=== PATIENT | male | born 1970 | race Caucasian/White ===

== ENCOUNTER 2022-02-22 05:11 | Observation (INO) ==
--- NOTE | 2021-12-04 15:01 | PAT Medication Instructions ---
Medication Instructions Date of Service December 04, 2021 Home Medications coenzyme Q10 200 mg capsule (Co Q-10) 200 mg PO HS STOP taking 2 weeks before surgery (or as soon as possible if surgery is within 2 weeks) coenzyme Q10 200 mg capsule (Co Q-10) 200 mg PO HS Other Notes If you have any questions please call us at [phone] or [phone] or [phone] or [phone]
--- NOTE | 2021-12-14 08:19 | Anesthesiology Consultation ---
Date of Service December 14, 2021 Assessment & Plan (1) Encounter for pre-operative examination: - awaiting pt reported upcoming PCP clearance 12/26/21. Outpatient joint assessment: Patient is currently scheduled for inpatient pathway. Per discussion with Dr. Dennis, if re-evaluated pending system levels during current pandemic/surgeon requests outpatient pathway, patient is acceptable candidate for outpatient joint program from anesthesia standpoint pending perioperative course and surgeon's office assessment of pt motivation/support/completion of same day joint program preop requirements. Chart Review Chart Review: Pending: Refer to Additional Notes / Consult section and Patient seen in Pre Admission Testing Teaching & Discussion Pre-Anesthesia Teaching/Discussion Notes: Instructed NPO after midnight before surgery, except medications with 15 cc of water. Medication instructions provided according to the PAT guidelines. History Surgery Operation Date: 01/17/22 07:15 Proposed Procedures p Right Total Shoulder Arthroplasty - Martin Murphy MD Height/Weight Height: 5 ft 7 in Weight: 85.2 kg Allergies Allergy/AdvReac Type Severity Reaction Status Date / Time No Known Allergies Allergy Verified 12/04/21 07:34 Medications Home Medications Medication Instructions Recorded Confirmed Last Taken coenzyme Q10 200 mg capsule (Co 200 mg PO HS 12/04/21 12/04/21 Unknown Q-10) Past Medical History Medical History (Updated 12/14/21 @ 08:33 by Lexie Torres PA-C) History of high blood pressure monitoring, 120-80s; white coat hypertension Patient denies h/o stroke, seizures, heart attack, heart failure, DM, blood clots or blood transfusions. Exercise / Class Metabolic Activity II 4-5 Yardwork/Stairs/Walk up hill (denies CP or SOB with 1 FOS) Past Surgical History Surgical History History of arthroscopy left knee x2, right knee x1 History of colonoscopy Hx of LASIK Hx of vasectomy [place] teeth extracted Past Anesthesia History No Hx of Anesthesia Complications and No Family Hx of Anesthesia Complications History of PONV No Hx of PONV and No Hx of Motion Sickness Social History Smoking Status: Never smoker Do You Dip or Chew Tobacco: No Hx Alcohol Use: Yes Alcohol type: beer, wine and hard liquor alcohol intake frequency: a few times a week Hx Substance Use: No substance use type: does not use Review of Systems Snoring, denies witnessed apneas. Patient denies chest pain, shortness of breath, dyspnea on exertion, reflux, fever, chills, cough, wheezing, or palpitations. Physical Exam Vital Signs Vitals BP 168/97, pt states BP is usually 120s/80s with exception to certain clinical settings and that this is normal BP reading for such settings for him, following with PCP for BP monitoring P 62 TEMP 97.7 SP02 99% on RA RESP 18 Physical Full cervical extension range of motion without pain TMD 3.5 finger breadths Mallampati Score 2 Dentition: intact, several caps/crowns; denies chipped or loose teeth, implants or bridges Lungs: normal respiratory effort. Clear throughout to auscultation, no adventitious breath sounds Cardiac: regular rate and rhythm, no murmurs noted Carotid arteries: negative bruit bilat Lab Results Anesthesia Preop Results Results Anesthesia Widget: WBC 5.78 K/ul (4.8-10.8) 12/14/21 Hgb 15.1 g/dl (14.0-18.0) 12/14/21 Hct 42.9 % (40.1-51.0) 12/14/21 Plt 211 K/uL (130-400) 12/14/21 Na 140 mmol/L (136-145) 12/14/21 K 4.1 mmol/L (3.5-5.1) 12/14/21 Cl 104 mmol/L (98-107) 12/14/21 CO2 31 mmol/L (21-32) 12/14/21 BUN 21 mg/dl (6-23) 12/14/21 Creat 1.10 mg/dl (0.6-1.4) 12/14/21 Glucose Level 89 mg/dl (70-99(Fasting)) 12/14/21 PT 10.9 Seconds (9.0-12.0) 12/14/21 PTT 28.2 Seconds (21.0-31.0) 12/14/21 INR 1.0 (0.9-1.1) 12/14/21 HA1c 5.0 % (4.5-5.6) 12/14/21 Urine Color Yellow 12/14/21 Urine Appearance Clear (Clear) 12/14/21 Urine pH 5.5 (4.5-7.5) 12/14/21 Urine Specific [place] 1.024 (1.000-1.030) 12/14/21 Urine Protein Negative (Negative) 12/14/21 Urine Glucose (UA) Negative (Negative) 12/14/21 Urine Ketones Negative (Negative) 12/14/21 Urine Blood Negative (Negative) 12/14/21 Urine Nitrite Negative (Negative) 12/14/21 Urine Bilirubin Negative (Negative) 12/14/21 Urine Urobilinogen Negative (Negative) 12/14/21 Urine Leukocyte Esterase Negative (Negative) 12/14/21 Blood Type O Positive 12/14/21 Antibody Screen NEGATIVE 12/14/21 Testing Electrocardiogram Date: 12/14/21 Sinus bradycardia, rate 54 bpm Chest X-Ray Date: 12/14/21 No acute process COVID-19 Risk Screen Screening Information COVID-19 Screen Date: 12/14/21 Exposure 21 Days Family/Household +COVID Last 21 Days: No Exposure 10 Days Any COVID Exposure Last 10 Days: No Symptoms Last 10 Days Experienced COVID Sx Last 10 Days: No + COVID 0-90 Days COVID + in Last 0-90 Days: No
--- NOTE | 2021-12-31 08:48 | History & Physical Report ---
Date of Service December 31, 2021 Assessment & Plan (1) Primary osteoarthritis, right shoulder: Plan: Treatment options discussed with the patient. He has failed conservative measures and would like to proceed with surgical intervention. Risks, benefits and alternatives to surgery including but not limited to infection, DVT, pain, stiffness, need for revision surgery, damage to blood vessels, damage to nerves, PE, , were discussed with the patient and they wish to proceed. Plan for right overemotional total shoulder arthroplasty scheduled for January [address] [facility] [address] Murphy. We will plan on outpatient PT postop. We will plan on aspirin 81 mg twice daily for 1 month postop for DVT prophylaxis. All questions answered. He will follow-up postop. History of Present Illness Chief Complaint: Right shoulder pain Primary Care Provider: Deonte Fine 51-year-old male with past medical history significant for hypertension who presents with ongoing right shoulder pain. Pain is interfering with his daily and leisure activities. He has failed conservative measures and would like to proceed with surgical intervention. Patient denies headaches, sweats, fevers, chills, double vision, blurred vision, cough, sore throat, dysphagia, chest pain, sob, wheezing, n/v/d/c, numbness, tingling, fatigue, urinary symptoms, mood disorders. ROS positive for right shoulder pain and stiffness. Allergies Allergy/AdvReac Type Severity Reaction Status Date / Time No Known Allergies Allergy Verified 12/04/21 07:34 Home Medications Medication Instructions Recorded Confirmed Type coenzyme Q10 200 mg capsule (Co 200 mg PO HS 12/04/21 12/04/21 History Q-10) Past Med/Surg History Medical History (Updated 12/31/21 @ 08:47 by Davi Bravo PA-C) History of high blood pressure monitoring, 120-80s; white coat hypertension Surgical History History of arthroscopy left knee x2, right knee x1 History of colonoscopy Hx of LASIK Hx of vasectomy [place] teeth extracted Social History Smoking Status: Never smoker Second Hand Exposure: No; Hx Alcohol Use: Yes Alcohol type: beer, wine and hard liquor Hx Substance Use: No Preferred Language: Indonesian Communication Ability: Effective Bulk Mail Clerk Required: No Beliefs That Will Affect Care: None Current Living Situation: Significant Other Feels Safe at Home: Yes Assistive Devices: Glasses Review of Systems All systems reviewed & are unremarkable except as noted in HPI & below Physical Exam Constitutional: well developed and well nourished; no acute distress Eyes: PERRL, conjunctivae normal, anicteric sclerae ENMT: external ear and nose normal, oropharynx normal Neck: trachea midline, no thyromegaly Respiratory: normal respiratory effort, lungs clear to auscultation Cardiovascular: RRR, no murmur, no edema Musculoskeletal: Right shoulder: Diffuse tenderness. There is crepitation with range of motion. He has positive impingement signs. Active painful range of motion. External rotation to 30 degrees, abduction to 60 degrees, forward flexion to 150 degrees. Strength is normal. Skin: no rashes, warm and dry Neurologic: patellar DTR's 2+ bilat, sensation intact Psychiatric: A+Ox3, euthymic affect Results & Data ([facility]) Diagnostic Findings Right shoulder radiographs demonstrate end-stage osteoarthritis right shoulder with [id number] glenohumeral joint. There is a large inferior humeral spur.
--- NOTE | 2022-02-19 14:02 | Anesthesiology Consultation ---
Date of Service February 19, 2022 Assessment & Plan (1) Encounter for pre-operative examination: Chart Review Chart Review: Acceptable Risk for Surgery and Patient NOT seen in Pre Admission Testing -COVID screening: Per [facility] nursing assessment on 02/19/22. No known COVID-19 positive contacts or current COVID-19 related symptoms. Travel screen negative. Patient vaccinated for Covid. At surgeon discretion if preop Covid testing being done. Pt seen in PAT 12/14/21- at that time - consider acceptable candidate for Outpatient Joint Program if surgeon chooses pending patient is motivated, has support and surgeon's office completes Same Day Joint protocol requirements. PT currently scheduled as 23 observation Pt seen by PCP 12/26/21= Seen for preop assessment. Planned surgery is intermediate risk. Patient is medically optimized for right total shoulder arthroplasty on 01/17/2022 (surgery rescheduled to 02/22/22). Hypertensionno signs or symptoms of hypertensive crisis. BP at home usually in 130s over 80s. BP on repeat 150/94. On BP meds in the pastno longer on treatment. May have some element of whitecoat hypertension. We will further discuss after surgery. History Surgery Operation Date: 02/22/22 09:20 Proposed Procedures p Right Total Shoulder Arthroplasty - Martin Murphy MD Height/Weight Height: 5 ft 7 in Weight: 82.554 kg Allergies Allergy/AdvReac Type Severity Reaction Status Date / Time No Known Allergies Allergy Verified 02/19/22 13:25 Medications Home Medications Medication Instructions Recorded Confirmed Last Taken coenzyme Q10 200 mg capsule (Co 200 mg PO HS 12/04/21 02/19/22 Unknown Q-10) olmesartan 5 mg tablet (Benicar) 10 mg PO QPM 02/19/22 02/19/22 Unknown Past Medical History Medical History (Updated 02/19/22 @ 13:59 by Chary Martinez PA-C) Dyslipidemia Per PCP records HTN (hypertension) Meniere disease Per PCP records Past Surgical History Surgical History History of arthroscopy left knee x2, right knee x1 History of colonoscopy Hx of LASIK Hx of vasectomy [place] teeth extracted Social History Smoking Status: Never smoker Do You Dip or Chew Tobacco: No Hx Alcohol Use: Yes Alcohol type: beer, wine and hard liquor alcohol intake frequency: a few times a week Hx Substance Use: No substance use type: does not use Lab Results Anesthesia Preop Results Results Anesthesia Widget: WBC 6.98 K/ul (4.8-10.8) 01/26/22 Hgb 15.5 g/dl (14.0-18.0) 01/26/22 Hct 43.0 % (40.1-51.0) 01/26/22 Plt 217 K/uL (130-400) 01/26/22 Na 141 mmol/L (136-145) 01/26/22 K 4.2 mmol/L (3.5-5.1) 01/26/22 Cl 104 mmol/L (98-107) 01/26/22 CO2 31 mmol/L (21-32) 01/26/22 BUN 22 mg/dl (6-23) 01/26/22 Creat 1.03 mg/dl (0.6-1.4) 01/26/22 Glucose Level 87 mg/dl (70-99(Fasting)) 01/26/22 PT 10.9 Seconds (9.0-12.0) 01/26/22 PTT 27.6 Seconds (21.0-31.0) 01/26/22 INR 1.0 (0.9-1.1) 01/26/22 HA1c 4.9 % (4.5-5.6) 01/26/22 Urine Color Yellow 01/26/22 Urine Appearance Clear (Clear) 01/26/22 Urine pH 5.0 (4.5-7.5) 01/26/22 Urine Specific [place] 1.017 (1.000-1.030) 01/26/22 Urine Protein Negative (Negative) 01/26/22 Urine Glucose (UA) Negative (Negative) 01/26/22 Urine Ketones Negative (Negative) 01/26/22 Urine Blood Negative (Negative) 01/26/22 Urine Nitrite Negative (Negative) 01/26/22 Urine Bilirubin Negative (Negative) 01/26/22 Urine Urobilinogen Negative (Negative) 01/26/22 Urine Leukocyte Esterase Negative (Negative) 01/26/22 Blood Type O Positive 01/26/22 Antibody Screen NEGATIVE 01/26/22 Testing Laboratory Results 01/26/22= URINE CULTURE: No growth Electrocardiogram Date: 12/14/21 Sinus bradycardia, rate 54 bpm Chest X-Ray Date: 12/14/21 No acute process
--- NOTE | 2022-02-20 15:42 | History & Physical Report ---
Date of Service February 20, 2022 Assessment & Plan (1) Primary osteoarthritis, right shoulder: Plan: Treatment options discussed with the patient. He has failed conservative measures and would like to proceed with surgical intervention. Risks, benefits and alternatives to surgery including but not limited to infection, DVT, pain, stiffness, need for revision surgery, damage to blood vessels, damage to nerves, PE, , were discussed with the patient and they wish to proceed. Plan for right overemotional total shoulder arthroplasty scheduled for February 22 at [facility] with Dr. Murphy. We will plan on outpatient PT postop. All questions answered. He will follow-up postop. History of Present Illness Chief Complaint: Right shoulder pain Primary Care Provider: Deonte Fine 51-year-old male with past medical history significant for hypertension who presents with ongoing right shoulder pain. Pain is interfering with his daily and leisure activities. He has failed conservative measures and would like to proceed with surgical intervention. Patient denies headaches, sweats, fevers, chills, double vision, blurred vision, cough, sore throat, dysphagia, chest pain, sob, wheezing, n/v/d/c, numbness, tingling, fatigue, urinary symptoms, mood disorders. ROS positive for right shoulder pain and stiffness. Allergies Allergy/AdvReac Type Severity Reaction Status Date / Time No Known Allergies Allergy Verified 02/19/22 13:25 Home Medications Medication Instructions Recorded Confirmed Type coenzyme Q10 200 mg capsule (Co 200 mg PO HS 12/04/21 02/19/22 History Q-10) olmesartan 5 mg tablet (Benicar) 10 mg PO QPM 02/19/22 02/19/22 History Past Med/Surg History Medical History (Updated 02/19/22 @ 13:59 by Chary Martinez PA-C) Dyslipidemia Per PCP records HTN (hypertension) Meniere disease Per PCP records Surgical History History of arthroscopy left knee x2, right knee x1 History of colonoscopy Hx of LASIK Hx of vasectomy [place] teeth extracted Social History Smoking Status: Never smoker Second Hand Exposure: No; Hx Alcohol Use: Yes Alcohol type: beer, wine and hard liquor Hx Substance Use: No Preferred Language: French Communication Ability: Effective Medical Research Associate Required: No Beliefs That Will Affect Care: None Current Living Situation: Significant Other Feels Safe at Home: Yes Assistive Devices: Glasses Review of Systems All systems reviewed & are unremarkable except as noted in HPI & below Physical Exam Constitutional: well developed and well nourished; no acute distress Eyes: PERRL, conjunctivae normal, anicteric sclerae ENMT: external ear and nose normal, oropharynx normal Neck: trachea midline, no thyromegaly Respiratory: normal respiratory effort, lungs clear to auscultation Cardiovascular: RRR, no murmur, no edema Musculoskeletal: Right shoulder: Diffuse tenderness. There is crepitation with range of motion. He has positive impingement signs. Active painful range of motion. External rotation to 30 degrees, abduction to 60 degrees, forward flexion to 150 degrees. Strength is normal. Skin: no rashes, warm and dry Neurologic: patellar DTR's 2+ bilat, sensation intact Psychiatric: A+Ox3, euthymic affect Results & Data ([facility]) Diagnostic Findings Right shoulder radiographs demonstrate end-stage osteoarthritis right shoulder with [id number] glenohumeral joint. There is a large inferior humeral spur.
[~2022-02-22 05:11] MED LIST: ACETAMINOPHEN 500 MG TAB PO SCH; CeleBREX 200 MG CAP PO SCH; FAMOTIDINE 20 MG TAB PO SCH; GABAPENTIN 900 MG DOSE PO SCH; LR 15ML/HR IV SCH; METOCLOPRAMIDE HCL 10 MG TABLET PO SCH; TRANEXAMIC ACID 1,000 MG **IV Intra-op IV SCH; TRANEXAMIC ACID 1,000 MG **IV Pre-op IV SCH; ceFAZolin 2000MG 2,000 MG/15 ML SYR IV SCH; dexAMETHasone 4 MG TAB PO SCH
[2022-02-22] MEDS ORDERED: ceFAZolin 2000MG 2,000 MG/15 ML SYR IV SCH (06:00)
[2022-02-22] MEDS ORDERED: dexAMETHasone 4 MG TAB PO SCH (06:00)
[2022-02-22] MEDS ORDERED: FAMOTIDINE 20 MG TAB PO SCH (06:00)
[2022-02-22] MEDS ORDERED: LR 15ML/HR IV SCH (06:00)
[2022-02-22] MEDS ORDERED: ACETAMINOPHEN 500 MG TAB PO SCH (06:00)
[2022-02-22] MEDS ORDERED: TRANEXAMIC ACID 1,000 MG **IV Pre-op IV SCH (06:00)
[2022-02-22] MEDS ORDERED: METOCLOPRAMIDE HCL 10 MG TABLET PO SCH (06:00)
[2022-02-22] MEDS ORDERED: GABAPENTIN 900 MG DOSE PO SCH (06:00)
[2022-02-22] MEDS ORDERED: TRANEXAMIC ACID 1,000 MG **IV Intra-op IV SCH (06:00)
[2022-02-22] MEDS ORDERED: CeleBREX 200 MG CAP PO SCH (06:00)
[2022-02-22] MEDS ORDERED: BUPIVACAINE 0.5 % 5 MG/1 ML PF 10ML VIAL ONE (06:26)
[2022-02-22] MEDS ORDERED: PROPOFOL IV EMULSION 10 MG/ML 20 ML VIAL IV ONE (06:42)
[2022-02-22] MEDS ORDERED: DEXAMETHASONE SOD INJ 4 MG/ML VIAL ONE (06:42)
[2022-02-22] MEDS ORDERED: MIDAZOLAM HCL 1 MG/ML 2ML VIAL ONE (06:42)
[2022-02-22] MEDS ORDERED: ONDANSETRON INJ 2 MG/ML 2 ML VIAL ONE (06:42)
[2022-02-22] MEDS ORDERED: fentaNYL citrate 100 MCG/2 ML VIAL ONE (06:42)
[2022-02-22] MEDS ORDERED: ROCURONIUM BROMIDE 10 MG/ML 5 ML VIAL IV ONE ×5 (06:42→10:40)
[2022-02-22] MEDS ORDERED: SUGAMMADEX SODIUM 200 MG/2 ML VIAL IV ONE (06:47)
[2022-02-22] MEDS ORDERED: EpINEphrine HCL INJ 1 MG/ML 1ML SYRINGE ONE (06:58)
[2022-02-22] MEDS ORDERED: ePHEDrine sulfate 50 MG/ML AMP IV PRN (07:00)
[2022-02-22] MEDS ORDERED: ATROPINE SULFATE 0.1 MG/ML 10ML SYR IV PRN (07:00)
[2022-02-22] MEDS ORDERED: PROMETHAZINE HCL 6.25 MG in SODIUM CHLORIDE 0.9% 50 ML IV PRN (07:00)
[2022-02-22] MEDS ORDERED: ONDANSETRON INJ 2 MG/ML 2 ML VIAL IV PRN ×2 (07:00→13:51)
[2022-02-22] MEDS ORDERED: fentaNYL citrate 100 MCG/2 ML VIAL IV PRN (07:00)
--- NOTE | 2022-02-22 07:22 | History & Physical Bridge Note ---
Date of Service February 22, 2022 History & Physical Bridge Note I have examined the patient, reviewed the History & Physical and in the interval since the performance of the History & Physical I have noted the following changes of clinical significance: no changes noted
[2022-02-22] MEDS ORDERED: PHENYLEPHRINE HCL 10 MG/ML VIAL ONE (08:13)
--- NOTE | 2022-02-22 11:10 | Operative Report ---
Post Operative Report Pre & Post Diagnosis Operation Date: 02/22/22 07:00 Pre-Op Diagnosis: Primary osteoarthritis, right shoulder Post-Op Diagnosis: Primary osteoarthritis, chronic biceps tenosynovitis, posterior shoulder instability right shoulder I identified the patient and participated in the time-out.: Yes Procedure Operation Date: 02/22/22 07:00 Actual Procedures p Right Total Shoulder Arthroplasty(Right) biceps tenodesis plication suture posterior capsule- Martin Murphy MD Surgeon Martin Murphy MD Air Conditioning Insulation Installer Cr BUTLER Estimated Blood Loss 200 Findings Consistent with Post-Op Diagnosis Specimens None Drains 2 Hemovac Anesthesia Type General Regional Complications none Disposition Disposition: Recovery Room Indications 51-year-old male with chronic aggressive osteoarthritis of his right shoulder failed conservative management. Radiographs demonstrates axby-zf-lahn glenohumeral joint and typical changes of osteoarthritis with hypertrophic spurs and more posterior glenoid wear but no marked subluxation Description of Procedure Patient was placed placed under regional block and general anesthetic. The right upper extremity had a towel roll placed on the medial border of the scapula and translated to the side of the bed so it could be manipulated off of the bed as necessary. A foam headrest was placed and protective eyewear was placed. Lower extremities were well-padded. Patient was positioned in a beachchair position approximately 40 degrees. Shoulder exam demonstrated forward elevation passively to 150 abduction to 70 external rotation to 50 with arm at the side. The right upper extremity was prepped and draped in sterile fashion. A deltopectoral approach was performed with a longitudinal incision in a deltopectoral interval. The skin was incised sharply and the subcutaneous flaps were elevated. The cephalic vein was dissected out and retracted laterally with the deltoid. The clavipectoral fascia was divided at the lateral margin of the conjoined tendon and extended up to the CA ligament. A self- retaining retractor was placed. Biceps findings demonstrated chronic thickened biceps tenosynovitis extending along the biceps tendon in the bicipital groove and extending down fpc to the level of the pectoralis tendon.. Biceps tendon was tenodesed to the pectoralis with [id number] #2 FiberWire sutures. The chronic tenosynovitis was resected and the proximal biceps resected. The circumflex vessels were tied off with silk ties and divided laterally. The subscapularis muscle fibers were at the level of the circumflex vessels dissection was taken down to the capsule and a Kitner elevator was used to release the inferior fibers of the capsule protecting the axillary nerve inferiorly. A blunt Hohmann retractors were placed between the inferior located axillary nerve and the capsule. This was verified with a tug test. The rotator was opened up and extended down to the glenoid. The subscapularis was taken down with a transtendinous incision leaving a cuff of tissue for repair on the lesser tuberosity. The incision was carried through the subscapularis to the capsule and then subperiosteally along the inferior capsule exposing the inferior humeral osteophytes. These demonstrated large circumferential osteophytes mainly lateral and inferiorly.. The osteophytes were resected with an artist chisel and rongeur. The humeral head findings demonstrated eburnated bone slightly more posterior from the central region with no flattening of the head and no significant bone loss. After the osteophytes were resected humeral head is retracted posterior to the glenoid with a Fukuda retractor. The glenoid findings demonstrated the superior and anterior articular cartilage on the glenoid was still intact but posterior inferiorly it was down to bone with eburnated bone.. The labrum was resected and the biceps tendon resected. A 360 degree release of the subscapularis was performed. Anterior and inferior releases were performed about the glenoid and no releases were performed posteriorly. Subperiosteal release with electrocautery on the glenoid anterior and inferior and also utilizing a small Jacobo elevator to perform that release. Upon completion of the releases the humeral head was reexposed with retractors and humeral head was sized for a size 50 x 46 Arthrosurface OVO motion humeral head. The central guidepin was placed. The threaded stop for the reamer was drilled into the head. This was placed at the appropriate depth. The head reamer was used. All debris was irrigated out of the joint. The flat head resection reamer was used. The remaining section of bone was removed with a saw. The humerus was then retracted posteriorly again with the Fukuda retractor posterior to the glenoid. The guide for the glenoid component was placed and the guide pin was advanced to the appropriate depth. Glenoid reamers were utilized. The depth gauge verified the depth of the reaming. The drill hole for the central post was placed. Trial component was placed at satisfactory position and depth. Trial was removed and the glenoid reamed area was prepared for cementing with several drill holes placed around the reamed area to accept cement. After further irrigation the reamed area was packed with epinephrine soaked tampon sponges. The Palacos cement was vacuum mixed. The cement was injected into the glenoid and compressed with a finger compression device. More cement was placed on the back of the glenoid component and it was inserted into the reamed area in appropriate position with the suction device that held onto the component. When the component was appropriate seating position the suction was removed as well as a suction device and direct pressure was placed on of the component and excess cement was cleared and the component was held in position until the cement fully cured. Attention was taken back to the humerus. The humeral head guide was placed onto the humeral head in the appropriate position. The guidepin was readvanced in position. The 12 mm tapered post was inserted to appropriate depth with excellent fixation. At this time 3 drill holes were made along the lateral surface of the lesser tuberosity spanning the distance of the subscapularis attachment and 3 transosseous #5 FiberWire sutures were placed for repair of the subscapularis. After copious irrigation the Mckeon taper of the tapered post was dried and then the humeral component size[] was impacted onto the taper post with stable fixation. This was assessed with a Jacobo elevator to be stable. This was then reduced to the glenoid and range of motion and stability was assessed. With superior elevation and posterior stress there was subluxation of the implant posteriorly. In order to address this I had to do a posterior capsular plication with Vicryl suture and placed a Vicryl plication suture into the posterior capsule and left untied initially. The sutures were then passed anteriorly inferiorly and brought out through the subscapularis tendon medial to the repair and initially left untied. After copious irrigation the subscapularis was repaired with the #5 FiberWire sutures using Esau-Ismael suture technique and lateral row soft tissue repair with #2 FiberWire [id number]-[id number] sutures and the rotator interval was closed in maximal external rotation with interrupted #2 FiberWire sutures. The Vicryl sutures then tied over the subscapularis to stabilize the posterior capsule range of motion was assessed and with [id number] test was less than 50% translation in neutral position with the arm in the belly there was no translation posteriorly there is no subluxation with forward flexion to 60 degrees but I do not bring the arm up higher than 90 in order not to disrupt any of the sutures. The wound was copiously irrigated and 2 Hemovac drains were placed brought out laterally. The deltopectoral interval was repaired with [id number]-[id number] #1 Vicryl sutures and the subcutaneous tissues were closed into 2-0 Vicryl sutures and skin closed with shawn and services were applied and a shoulder immobilizer. The patient tolerated the procedure well. Cr BUTLER my physician bankruptcy legal assistant assisted in the procedure with arm positioning soft tissue retraction instrument manageme nt suture management and performed the subcutaneous and skin closure dressings and shoulder immobilizer application and will participate in the postop care the patient. I attest to the content of the Intraoperative Record and any orders documented therein. Any exceptions are noted below.
--- NOTE | 2022-02-22 12:14 | XRay Report ---
XR shoulder RT min 2V routine HISTORY: 51 years-old Male Post shoulder surgery right shoulder arthroplasty COMPARISON: Chest radiograph 12/14/2021 TECHNIQUE: 2 views of the right shoulder FINDINGS: Right shoulder arthroplasty demonstrates satisfactory alignment. Surgical drainage catheter is noted along with skin shawn, expected postoperative soft tissue swelling with deep tissue air. Mild to mo derate AC joint osteoarthritis. No acute fracture, malalignment or unexpected opaque foreign body. Th e imaged lung flower appear clear. Small right pleural effusion. IMPRESSION: Right shoulder arthroplasty with expected postoperative changes. ACT 112: Negative or not required by law. The above report was generated using voice recognition software. It may contain grammatical, syntax o r spelling errors. Electronically signed by: Perry Black M.D. 02/22/2022 12:13 PM
--- NOTE | 2022-02-22 12:30 | Anesthesiology Progress Note ---
Date of Service February 22, 2022 Anesthesia Post Procedure Vital Signs Vital Signs: Temp Pulse Resp BP BP Pulse Ox O2 Del Method 02/22/22 12:10 82 22 162/107 H 97 Room Air 02/22/22 12:00 36.4 C L 79 20 162/104 H 96 Room Air 02/22/22 11:50 77 16 151/98 H 95 Room Air 02/22/22 11:40 72 13 147/100 H 96 Oxymask 02/22/22 11:30 73 12 145/97 H 97 Oxymask 02/22/22 11:20 75 16 153/103 H 97 Oxymask 02/22/22 11:13 36.1 C L 77 14 157/103 H 98 Oxymask 02/22/22 05:46 36.5 C 75 20 204/130 H 218/142 H 98 Room Air O2 Flow Rate 02/22/22 12:10 02/22/22 12:00 02/22/22 11:50 02/22/22 11:40 4 02/22/22 11:30 4 02/22/22 11:20 6 02/22/22 11:13 6 02/22/22 05:46 Transfer of Care Handoff Completed per policy Notes Mental Status: alert / awake / arousable Patient Amnestic to Procedure: Yes Nausea / Vomiting: adequately controlled Pain: adequately controlled Airway Patency, RR, SpO2: stable & adequate BP & HR: stable & adequate Hydration State: stable & adequate Anesthetic Complications: no major complications apparent
[2022-02-22] MEDS ORDERED: NALOXONE HCL 0.4 MG/1 ML VIAL/CARP IV PRN (13:51)
[2022-02-22] MEDS ORDERED: HYDROmorphone INJ 0.5 MG/0.5 ML SYR IV PRN (13:51)
[2022-02-22] MEDS ORDERED: bisacodyL 10 MG SUPP PR PRN (13:51)
[2022-02-22] MEDS ORDERED: TAMSULOSIN HCL 0.4 MG CAP PO PRN (13:51)
[2022-02-22] MEDS ORDERED: MAGNESIUM HYDROXIDE SUSP 30 ML UDC PO PRN (13:51)
[2022-02-22] MEDS ORDERED: METOCLOPRAMIDE HCL INJ 5 MG/ML 2 ML VIAL IV PRN (13:51)
--- NOTE | 2022-02-22 14:43 | Hospitalist Consultation ---
Date of Consultation February 22, 2022 Assessment & Plan (1) Primary osteoarthritis, right shoulder: Lewis Snow is a 51-year-old male with a past medical history of primary hypertension with no history of heart disease, pulmonary disease, CVA, renal disease, or diabetes who presented for scheduled right total shoulder arthroplasty. We are consulted for postop medication management of hypertension. Primary osteoarthritis, right shoulder s/p total shoulder arthroplasty DVT prophylaxis, pain control, activity restrictions per primary team Drain in place draining sanguinous material Remains none postop, vascularly intact Hypertension, primary. History of whitecoat hypertension With sensitivity and hypertension to various blood pressure medications as outpatient Patient noted at physicians office to go for blood pressures of [id number] down to 150/94 by being allowed to rest for 30 minutes and repeating while relaxed Past vertigo and dizziness to aggressive titration of Benicar, Prinivil, BenzePrO, HCTZ, losartan tolerates olmesartan well, pending slow titration as outpatient Reports blood pressures normally 160/616154 Preoperative creatinine 01/2022 1.03, no history of renal disease Resume olmesartan 10 mg today BMP every morning Diet: Regular CODE STATUS: Full code DVT prophylaxis: Per primary team Lewis is a 51-year-old male with a history of hypertension doing well postoperatively. Has mild hypertension similar to his preadmission baseline. Can resume olmesartan postoperatively today. Will chart check in the morning and sign off if doing well, if rising greater than 180 systolic or 105 diastolic or other concerns develop please reach out to medicine team for reassessment. History of Present Illness Attending Physician: Martin Murphy MD History of Present Illness Lewis Snow is a 51-year-old male with a past medical history of primary hypertension with no history of heart disease, pulmonary disease, CVA, renal disease, or diabetes who presented for scheduled right total shoulder arthroplasty. We are consulted for postop medication management of hypertension. Patient reports that he is sensitive to multiple blood pressure medications and has a difficulty tolerating these. He is followed by [facility] with Dr. Deonte Fine, most recently has been increased from Benicar 5 mg to 10 mg with the goal to slowly increase to 20 as outpatient. He last took this last night. Reports his normal blood pressures around 160s over 110 when untreated, has been closer to 130s/80s at home on Benicar. Patient was noted at office visit to go from a blood pressure of 180/112 down to 150/94 by being allowed to rest for 30 minutes. At time of bedside assessment he is 166/100. He denies any chest pain, chest pressure, lightheadedness, dizziness, syncope, presyncope, nausea, vomiting, diarrhea, constipation, vision change. No headache his right hand particularly the first through third digits remain numb postoperatively. Trace physiologic splitting is appreciated on cardiac auscultation, patient reports he exercises a minimum of 5 days a week and is a habitual runner. No murmurs are appreciated. No tobacco/regular alcohol use. Denies allergies, but reports sensitivity with a feeling of vertigo to multiple blood pressure medications. Tolerating the Benicar well, no dry cough, no history of angioedema. Full code Allergies Allergy/AdvReac Type Severity Reaction Status Date / Time No Known Allergies Allergy Verified 02/22/22 05:44 Home Medications Medication Instructions Recorded Confirmed Type coenzyme Q10 200 mg capsule (Co 200 mg PO HS 12/04/21 02/22/22 History Q-10) olmesartan 5 mg tablet (Benicar) 10 mg PO QPM 02/19/22 02/22/22 History Patient History Medical History Dyslipidemia Per PCP records HTN (hypertension) Meniere disease Per PCP records Surgical History History of arthroscopy left knee x2, right knee x1 History of colonoscopy Hx of LASIK Hx of vasectomy [place] teeth extracted Social History Smoking Status: Never smoker Second Hand Exposure: No; Do You Dip or Chew Tobacco: No; Tobacco Cessation Education Requested by Patient: No Hx Alcohol Use: Yes Alcohol type: beer, wine and hard liquor Hx Substance Use: No Preferred Language: Bangladeshi Communication Ability: Effective Biomedical Engineering Technician Required: No Beliefs That Will Affect Care: None Current Living Situation: Significant Other Other Information That Helps Us Care for You: No Feels Safe at Home: Yes Safety Concerns: Feels Safe At This Time Assistive Devices: Glasses Review of Systems Review of Systems: All systems reviewed & are unremarkable except as noted in HPI & below Physical Exam Physical Exam: General: A&Ox3. NAD. Cooperative. HEENT: Atraumatic, normocephalic. Vision/hearing intact. Pupils equal and reactive to light Pulm: CTAB A&P. -wheezes, -rales, -rhonchi. Symmetrical chest rise. No increase in work of breathing. No respiratory distress. Cardiac: RRR, -mrg. Radial pulses intact and symmetrical. Prominent physiologic splitting Abdominal: Nontender, nondistended, soft. BS present. Extremities: Right upper extremity in postop surgical dressing and sling. Fingers remain numb to soft touch in the right hand, radial pulses intact. Moving left hand without difficulty, meat clerk strength intact, sensation in fingertips normal. Able to wiggle toes bilaterally and with no sensory deficit to soft touch in feet bilaterally. Right shoulder with postoperative drain in place draining sanguinous material Results & Data Results & Data ([facility]) Vital Signs (Past 12 Hours) Vital Signs Temp Pulse Pulse Resp BP BP Pulse Ox 02/22/22 14:11 72 16 166/103 H 96 02/22/22 13:37 36.6 C 75 18 159/99 H 94 02/22/22 13:00 36.4 C L 74 17 157/102 H 94 02/22/22 12:45 76 20 161/102 H 94 02/22/22 12:30 75 13 150/101 H 95 02/22/22 12:20 88 18 163/104 H 94 02/22/22 12:10 82 22 162/107 H 97 02/22/22 12:00 36.4 C L 79 20 162/104 H 96 02/22/22 11:50 77 16 151/98 H 95 02/22/22 11:40 72 13 147/100 H 96 02/22/22 11:30 73 12 145/97 H 97 02/22/22 11:20 75 16 153/103 H 97 02/22/22 11:13 36.1 C L 77 14 157/103 H 98 02/22/22 05:46 36.5 C 75 20 204/130 H 218/142 H 98 O2 Del Method O2 Flow Rate 02/22/22 14:11 Room Air 02/22/22 13:37 Room Air 02/22/22 13:00 Room Air 02/22/22 12:45 Room Air 02/22/22 12:30 Room Air 02/22/22 12:20 Room Air 02/22/22 12:10 Room Air 02/22/22 12:00 Room Air 02/22/22 11:50 Room Air 02/22/22 11:40 Oxymask 4 02/22/22 11:30 Oxymask 4 02/22/22 11:20 Oxymask 6 02/22/22 11:13 Oxymask 6 02/22/22 05:46 Room Air PG Care Time/CCT Total # of Minutes Spent Total Time Spent with Patient: Total time spent is greater than 50% in coordination of care (as documented) at patient's floor/unit and/or counseling patient: Coding Level of Care Code 47247 Inpt Consult Level 3 Diagnoses Primary osteoarthritis, right shoulder M19.011
[2022-02-22] MEDS: ACETAMINOPHEN 500 MG TAB PO SCH ×2 (15:00→22:12)
[2022-02-22] MEDS: SODIUM CHLORIDE 0.9% 1000ML 1,000 ML IV SCH ×2 (15:00→23:38)
[2022-02-22] MEDS: ceFAZolin 2000MG 2,000 MG/15 ML SYR IV SCH (17:43)
[2022-02-22] MEDS ORDERED: SENNA 8.6 MG TAB PO SCH (21:00)
[2022-02-22] MEDS: DOCUSATE SODIUM 100 MG CAP PO SCH (22:09)
[2022-02-22] MEDS: ASPIRIN 81 MG ECTAB PO SCH (22:10)
[2022-02-23] MEDS: ceFAZolin 2000MG 2,000 MG/15 ML SYR IV SCH (00:33)
[2022-02-23] MEDS: oxyCODONE HCL IR 5 MG TAB (IMMEDIATE RELEASE) PO PRN ×3 (02:34→13:07)
[2022-02-23] MEDS: ACETAMINOPHEN 500 MG TAB PO SCH ×2 (05:06→13:47)
[2022-02-23 07:23] LABS: Basophils # (auto) 0.02 K/uL (0-0.2); Basophils % (auto) 0.2 %; Eosinophils # (auto) 0.08 K/uL (0-0.50); Eosinophils % (auto) 0.7 %; Hematocrit (blood only) 34.8 % (40.1-51.0); Immature Granulocytes # (auto) 0.08 K/uL (0.00-0.02); Immature Granulocytes % (auto) 0.7 %; Lymphocytes # (auto) 2.71 K/uL (1.2-3.4); Lymphocytes % (auto) 22.6 %; Mean Corpuscular Hgb Conc 34.5 g/dL (32.0-36.0); Mean Platelet Volume 9.2 fL (9.4-12.4); Monocytes # (auto) 1.01 K/uL (0.24-0.82); Monocytes % (auto) 8.4 %; Neutrophils % (auto) 67.4 %; Platelet Count 243 K/uL (130-400); RDW Coefficient of Variation 12.3 % (11.5-14.5); RDW Standard Deviation 38.9 fL (36.4-46.3)
[2022-02-23] MEDS: ASPIRIN 81 MG ECTAB PO SCH (08:07)
[2022-02-23] MEDS: DOCUSATE SODIUM 100 MG CAP PO SCH (08:08)
[2022-02-23 08:15] LABS: BUN Creatinine Ratio 18.6 (10-20); Calcium 8.9 mg/dl (8.5-10.1); Creatinine Clr Calc Pharmacy 89.2 ml/min; Est GFR (African American) 98.2 ml/min; Est GFR (Non-African American) 84.7 ml/min; Potassium 3.9 mmol/L (3.5-5.1)
[2022-02-23] MEDS ORDERED: MULTIVITAMIN TAB PO SCH (09:00)
--- NOTE | 2022-02-23 09:19 | Orthopedic Progress Note ---
Date of Service February 23, 2022 Assessment & Plan (1) Primary osteoarthritis, right shoulder: Plan: Postop day 1 status post right total shoulder arthroplasty PT/OT protocols. Nonweightbearing right upper extremity. DVT prophylaxis-aspirin p.o. twice daily, SCDs Pain management as written. Mild leukocytosis-likely secondary to preoperative steroids and or surgical stress. Patient is currently asymptomatic and afebrile DC planning-no formal physical therapy for 6 weeks. Patient to continue minimal exercises as taught by physical therapy here. Plan for discharge to home today. Admission and Anticipated Discharge Date Admission Date: February 22, 2022 Subjective Postop day 1 Patient sitting up in his bed awake and alert. No complaints this morning. Pain is still controlled. He states that his block is wearing off and most of the sensation has returned to his fingers. Some slight tingling left in his thumb. Physical Exam Physical Exam: Sling in place. Dressings are clean, dry, and intact. Patient has good range of motion of his right wrist and fingers. Again noted slight residual numbness in the thumb secondary to nerve block. Cap refills less than 2 seconds Results & Data ([facility]) Vital Signs (Past 12 Hours) Vital Signs Temp Pulse Resp BP Pulse Ox O2 Del Method 02/23/22 07:21 36.5 C 63 16 157/94 H 96 Room Air 02/23/22 02:30 36.8 C 68 16 159/93 H 95 Room Air 02/22/22 23:00 36.8 C 84 18 160/91 H 97 Room Air Laboratory Results 02/23/22 02/23/22 Range/Units 06:47 06:47 WBC 12.00 H (4.8-10.8) K/ul RBC 4.00 L (4.63-6.08) M/uL Hgb 12.0 L (14.0-18.0) g/dl Hct 34.8 L (40.1-51.0) % MCV 87.0 (80.0-100.0) fL MCH 30.0 (25.0-34.0) pg MCHC 34.5 (32.0-36.0) g/dL RDW Std Deviation 38.9 (36.4-46.3) fL RDW Coeff of Yuval 12.3 (11.5-14.5) % Plt Count 243 (130-400) K/uL MPV 9.2 L (9.4-12.4) fL Immature Gran % (Auto) 0.7 % Neut % (Auto) 67.4 % Lymph % (Auto) 22.6 % [place] % (Auto) 8.4 % Eos % (Auto) 0.7 % Baso % (Auto) 0.2 % Neut # (Auto) 8.10 H (1.4-6.5) K/uL Lymph # (Auto) 2.71 (1.2-3.4) K/uL [place] # (Auto) 1.01 H (0.24-0.82) K/uL Eos # (Auto) 0.08 (0-0.50) K/uL Baso # (Auto) 0.02 (0-0.2) K/uL Immature Gran # (Auto) 0.08 H (0.00-0.02) K/uL Sodium 139 (136-145) mmol/L Potassium 3.9 (3.5-5.1) mmol/L Chloride 108 H (98-107) mmol/L Carbon Dioxide 27 (21-32) mmol/L Anion Gap 4 (3-11) BUN 19 (6-23) mg/dl Creatinine 1.02 (0.6-1.4) mg/dl Est Cr Clr Drug Dosing 89.2 ml/min Est GFR ( Amer) 98.2 ml/min Est GFR (Non-Af Amer) 84.7 ml/min BUN/Creatinine Ratio 18.6 (10-20) Glucose 91 (70-99(Fasting)) mg/dl Calcium 8.9 (8.5-10.1) mg/dl
--- NOTE | 2022-02-23 09:29 | Hospitalist Progress Note ---
Date of Service February 23, 2022 Assessment & Plan (1) Primary osteoarthritis, right shoulder: Plan: Lewis Snow is a 51-year-old male with a past medical history of primary hypertension with no history of heart disease, pulmonary disease, CVA, renal disease, or diabetes who presented for scheduled right total shoulder arthroplasty. We are consulted for postop medication management of hypertension. Primary osteoarthritis, right shoulder s/p total shoulder arthroplasty DVT prophylaxis, pain control, activity restrictions per primary team Drain in place draining sanguinous material Remains none postop, vascularly intact Hypertension, primary. History of whitecoat hypertension With sensitivity and hypertension to various blood pressure medications as outpatient Patient noted at physicians office to go for blood pressures of [id number] down to 150/94 by being allowed to rest for 30 minutes and repeating while relaxed Past vertigo and dizziness to aggressive titration of Benicar, Prinivil, BenzePrO, HCTZ, losartan tolerates olmesartan well, pending slow titration as outpatient Reports blood pressures normally 160/793205 Preoperative creatinine 01/2022 1.03, no history of renal disease Resume olmesartan 10 mg today BMP every morning Diet: Regular CODE STATUS: Full code DVT prophylaxis: Per primary team Lewis is a 51-year-old male with a history of hypertension doing well postoperatively. Has mild hypertension similar to his preadmission baseline. On olmesartan blood pressure range between 1 33-1 50 systolic today. The patient was discharged today on home dose. I have informed him we do not change doses of blood pressure medications during hospitalization Admission and Anticipated Discharge Date Admission Date: February 22, 2022 Subjective at 0920 h, patient feels well. No vertigo/ dizziness/ CP Takes meclizine as needed but has not taken it for over a year. History of benign positional vertigo. Injured his right shoulder in his 20s in [place] in a ski accident. has not skiied since. Pain control adequate post R shoulder arthroplasty yesterday Physical Exam Physical Exam: Pleasant comfortable, conevrsant Ext : R shoulder in adduction, bandaged, a drain with sanguinous fluid emerging from it Chest : CTA cvs : s1. s2, RRR Ext no edema OFFICE EMPLOYEE grossly intact cheerful, normal insight and judgement Results & Data Results & Data ([facility]) Vital Signs (Past 12 Hours) Vital Signs Temp Pulse Resp BP Pulse Ox O2 Del Method 02/23/22 07:21 36.5 C 63 16 157/94 H 96 Room Air 02/23/22 02:30 36.8 C 68 16 159/93 H 95 Room Air 02/22/22 23:00 36.8 C 84 18 160/91 H 97 Room Air Laboratory Results Abnormal lab results 02/23/22 02/23/22 Range/Units 06:47 06:47 WBC 12.00 H (4.8-10.8) K/ul RBC 4.00 L (4.63-6.08) M/uL Hgb 12.0 L (14.0-18.0) g/dl Hct 34.8 L (40.1-51.0) % MPV 9.2 L (9.4-12.4) fL Neut # (Auto) 8.10 H (1.4-6.5) K/uL [place] # (Auto) 1.01 H (0.24-0.82) K/uL Immature Gran # (Auto) 0.08 H (0.00-0.02) K/uL Chloride 108 H (98-107) mmol/L PG Care Time/CCT Total # of Minutes Spent Total Time Spent with Patient: Total time spent is greater than 50% in coordination of care (as documented) at patient's floor/unit and/or counseling patient: Coding Level of Care Code 40556 Subseq Hosp Care Lvl 1 Diagnoses Primary osteoarthritis, right shoulder M19.011
[2022-02-23] MEDS ORDERED: OLMESARTAN MEDOXOMIL 5 MG TAB PO SCH (21:00)
--- NOTE | 2022-02-26 16:49 | Discharge Summary ---
Date of Service February 26, 2022 Admission HPI Per Admitting Provider 51-year-old male with past medical history significant for hypertension who presents with ongoing right shoulder pain. Pain is interfering with his daily and leisure activities. He has failed conservative measures and would like to proceed with surgical intervention. Patient denies headaches, sweats, fevers, chills, double vision, blurred vision, cough, sore throat, dysphagia, chest pain, sob, wheezing, n/v/d/c, numbness, tingling, fatigue, urinary symptoms, mood disorders. ROS positive for right shoulder pain and stiffness. Admission Exam Per Admitting Provider Constitutional: well developed and well nourished; no acute distress Eyes: PERRL, conjunctivae normal, anicteric sclerae ENMT: external ear and nose normal, oropharynx normal Neck: trachea midline, no thyromegaly Respiratory: normal respiratory effort, lungs clear to auscultation Cardiovascular: RRR, no murmur, no edema Musculoskeletal: Right shoulder: Diffuse tenderness. There is crepitation with range of motion. He has positive impingement signs. Active painful range of motion. External rotation to 30 degrees, abduction to 60 degrees, forward flexion to 150 degrees. Strength is normal. Skin: no rashes, warm and dry Neurologic: patellar DTR's 2+ bilat, sensation intact Psychiatric: A+Ox3, euthymic affect Principal Diagnosis right shoulder osteoarthritis Discharge Exam Sling in place. Dressings are clean, dry, and intact. Patient has good range of motion of his right wrist and fingers. Again noted slight residual numbness in the thumb secondary to nerve block. Cap refills less than 2 seconds Constitutional well developed and well nourished; no acute distress Discharge Data Allergies Allergy/AdvReac Type Severity Reaction Status Date / Time No Known Allergies Allergy Verified 02/22/22 05:44 Consultations 02/20/22 12:35 Consult Hospitalist Routine Procedures Performed Operation Date: 02/22/22 07:00 Actual Procedures p Right Total Shoulder Arthroplasty(Right) - Martin Murphy MD Ordered Studies 01/17/22 05:00 US - OR guided needle placemen Routine 02/22/22 05:00 US - OR guided needle placemen Routine Hospital Course (1) Primary osteoarthritis, right shoulder: Postop day 1 status post right total shoulder arthroplasty PT/OT protocols. Nonweightbearing right upper extremity. DVT prophylaxis-aspirin p.o. twice daily, SCDs Pain management as written. Mild leukocytosis-likely secondary to preoperative steroids and or surgical stress. Patient is currently asymptomatic and afebrile DC planning-no formal physical therapy for 6 weeks. Patient to continue minimal exercises as taught by physical therapy here. Plan for discharge to home today. Lab Results 02/22/22 02/23/22 02/23/22 Range/Units Unknown 06:47 06:47 WBC 12.00 H (4.8-10.8) K/ul RBC 4.00 L (4.63-6.08) M/uL Hgb 12.0 L (14.0-18.0) g/dl Hct 34.8 L (40.1-51.0) % MCV 87.0 (80.0-100.0) fL MCH 30.0 (25.0-34.0) pg MCHC 34.5 (32.0-36.0) g/dL RDW Std Deviation 38.9 (36.4-46.3) fL RDW Coeff of Yuval 12.3 (11.5-14.5) % Plt Count 243 (130-400) K/uL MPV 9.2 L (9.4-12.4) fL Immature Gran % (Auto) 0.7 % Neut % (Auto) 67.4 % Lymph % (Auto) 22.6 % [place] % (Auto) 8.4 % Eos % (Auto) 0.7 % Baso % (Auto) 0.2 % Neut # (Auto) 8.10 H (1.4-6.5) K/uL Lymph # (Auto) 2.71 (1.2-3.4) K/uL [place] # (Auto) 1.01 H (0.24-0.82) K/uL Eos # (Auto) 0.08 (0-0.50) K/uL Baso # (Auto) 0.02 (0-0.2) K/uL Immature Gran # (Auto) 0.08 H (0.00-0.02) K/uL Sodium 139 (136-145) mmol/L Potassium 3.9 (3.5-5.1) mmol/L Chloride 108 H (98-107) mmol/L Carbon Dioxide 27 (21-32) mmol/L Anion Gap 4 (3-11) BUN 19 (6-23) mg/dl Creatinine 1.02 (0.6-1.4) mg/dl Est Cr Clr Drug Dosing 89.2 ml/min Est GFR ( Amer) 98.2 ml/min Est GFR (Non-Af Amer) 84.7 ml/min BUN/Creatinine Ratio 18.6 (10-20) Glucose 91 (70-99(Fasting)) mg/dl Calcium 8.9 (8.5-10.1) mg/dl SARS-CoV-2, RNA, NAAT NEGATIVE (NEGATIVE) Total Time Total Time Spent Total Time Spent (In Minutes): 20 Discharge Plan Discharge Items Patient Disposition: Home - Self-Care Reason For Visit: Osteoarthritis Right Glenohumeral Joint Discharge Diagnosis: Osteoarthritis right glenohumeral joint Activity: Per Instructions section Weightbearing: Right non-weightbearing Non-emergency contact: Surgeon Call non-emergency contact if: you have any medication questions, your pain is not controlled, your temperature is above 101.5, your wound has increased redness and your wound has increased drainage Follow-up/Referrals: Deonte Fine [Primary Care Provider] - 02/28/22 2:05 pm (with Dr Juares) Martin Murphy MD [Surgeon] - (Follow-up with Dr. Murphy in 2 weeks from the day of your surgery for your first postoperative visit.) Diet: Regular Addtl Attending Provider Instructions: ACTIVITY RECOMMENDATIONS: SELF CARE INSTRUCTIONS AFTER TOTAL SHOULDER ARTHROPLASTY A. You may do daily exercises as taught in physical therapy while in hospital. No lifting with the operative arm. Please schedule your outpatient physical therapy appointment to begin within 6 weeks after leaving the hospital. Specific restrictions will be written on your physical therapy prescription that is provided to you. B. You are to wear your sling/immobilizer at all times EXCEPT when performing your daily exercises, participating in physical therapy and for hygiene purposes. C. You may perform dry, daily dressing changes. Please keep your incision covered. You may shower 48 hours after surgery. Do not apply soap or any ointment/lotions directly over incision. Do not soak incision in bath tub/swimming pool. D. You may use ice as needed to operative shoulder. SPECIAL CARE INSTRUCTIONS: MEDICATION INSTRUCTIONS: *It is recommended you take Aspirin 325mg daily for four weeks post-op. VERY IMPORTANT TO READ AND REVIEW A. There are a few signs you need to watch for after you are home. Call [facility] at [phone] if you experience any of the followin. Increased severe shoulder pain. Some pain is expected especially when you exercise. 2. Increased swelling in you shoulder or arm; pain or swelling in either upper extremity. 3. Any fluid drainage from the incision. 4. Shortness of breath or chest pain. B. Please call [facility] at [phone] if you have any questions or concerns about your operation or recovery. C. Call your physician if: 1. Temperature is greater than 101 degrees (F). 2. Pain is not relieved by prescribed pain medications. 3. Increase drainage or redness from incision. 4. Unanswered questions or concerns. FOLLOW UP VISIT: Please call [facility] at [phone] to schedule a follow up appointment with Dr. Murphy or his PA in 12-14 days from your surgery date. Stand-Alone Forms: My [facility], Pain - Opioid Pain Management, Smoking Cessation Medications and DC Order Prescriptions: New aspirin 81 mg Tablet,Delayed Release (Dr/Ec) 81 mg PO BID 30 Days Qty: 60 0RF acetaminophen [Tylenol Extra Strength] 500 mg Tablet 1,000 mg PO Q8 14 Days Qty: 84 0RF polyethylene glycol 3350 [Miralax] 17 gram powder in packet 17 g PO DAILY PRN (Reason: constipation) Qty: 5 0RF oxycodone 5 mg tablet 5 mg PO Q4H MDD 6 PRN (Reason: pain) Qty: 30 0RF Continued coenzyme Q10 [Co Q-10] 200 mg Capsule 200 mg PO HS olmesartan [Benicar] 5 mg Tablet 10 mg PO QPM Discharge Orders: Discharge Order (Routine); Ordered 02/23/22 Ordered By: Ayush Gamboa/Other Patient Handouts: Total Shoulder Replacement Surgery, Shoulder Replacement Surg Recovery Admission Data Admit Date/Time: 02/22/22 11:17 Attending Provider: Martin Murphy Admit Provider: Martin Murphy Primary Care Provider: Deonte Fine Other Providers: Evens King Navneet Other Interventions: Discharge Summary Assessment (RN) Last Done: 02/23/22 10:52
== END 2022-02-23 14:43 | disposition home or self-care (01) ==
LOC: ASU 05:11 → 3W 11:17 → INTOOBSV 11:17